=== PATIENT | male | born 1955 | race Caucasian/White ===

== ENCOUNTER 2018-10-02 15:21 | Emergency (ER) | payer MEDICARE ==
--- NOTE | 2018-10-02 16:24 | ED ---
General Adult HPI - General Chief complaint: Urogenital Stated complaint: blood in urine Time Seen by Provider: 10/02/18 15:30 Source: patient, RN notes reviewed Mode of arrival: ambulatory Limitations: no limitations - History of Present Illness Initial comments: This a 63-year-old male who presents emergency Department went over to see his urologist today and had a procedure done when he left the office he had a little color of red in his urine. At that time he is having no pain or discomfort. Patient went home and had another episode of urination which she states was basically bright red so he got very nervous and called the urologist he did not respond she came to the emergency department. Patient denies any pain with urination patient denies any back pain. Patient denies any abdominal pain. - Related Data Allergies Allergy/AdvReac Type Severity Reaction Status Date / Time No Known Allergies Allergy Verified 10/02/18 15:33 Review of Systems ROS Statement: Those systems with pertinent positive or pertinent negative responses have been documented in the HPI. ROS Other: All systems not noted in ROS Statement are negative. Past Medical History Past Medical History: Hypertension, Prostate Disorder History of Any Multi-Drug Resistant Organisms: None Reported Additional Past Surgical History / Comment(s): Lasik surgery Past Psychological History: No Psychological Hx Reported Smoking Status: Never smoker Past Alcohol Use History: None Reported Past Drug Use History: None Reported General Exam - General Exam Comments Initial Comments: GENERAL Patient is well-developed and well-nourished. Patient is in mild distress. EYES Patient's pupils are equal and round. Extraocular motion is intact SKIN Unremarkable NEURO The patient is alert and oriented 3 PYSCH Patient has normal interpersonal interactions. ABDOMINAL Patient is nontender. Limitations: no limitations Course Vital Signs 10/02/18 15:29 Temperature 97.5 F L Pulse Rate 83 Respiratory 18 Rate Blood Pressure 121/70 O2 Sat by Pulse 97 Oximetry Medical Decision Making - Medical Decision Making I spoke with Dr. Briceno today and he indicated to me to have the patient go home rest and drink a lot of fluids and follow-up next week. Patient was told to return to the emergency department if it became heavy oriented any new symptoms. Disposition Clinical Impression: Hematuria Disposition: HOME SELF-CARE Condition: Good Instructions (If sedation given, give patient instructions): Hematuria (ED) Additional Instructions: Patient should return if the bleeding becomes heavier or the patient becomes lightheaded dizzy or having pain or fever. Is patient prescribed a controlled substance at d/c from ED?: No Referrals: Richie Ventura MD [STAFF PHYSICIAN] - 10/05/18 Time of Disposition: 16:24
[2018-10-02 17:00] VITALS: BP 138/70; PULSE 79; RESP 16; TEMP 97.6
== END 2018-10-02 16:58 | disposition home or self-care (01) ==
LOC: EC 15:21
DX: R31.9 Hematuria, unspecified (principal); Z87.438 Personal history of other diseases of male genital organs
CPT/HCPCS: 99283